=== PATIENT | male | born 1945 | race African-American/Black ===

== ENCOUNTER → 2017-10-24 | Outpatient (CLI) | payer OTHER ==
[~2017-10-24] VITALS: Ht 171.4 cm; Wt 80.7 kg
[~2017-10-24] MED LIST: AMLODIPINE BESY10 MG PO; ASPIR-LOW81 MG PO; ATARAX,VISTARIL25 MG PO; FLOMAX0.4 MG PO; HYDROCHLOROTH12.5 M3 PO; HYDROCHLOROTHIA25 MG PO; HYDROCODON-ACE1 EAC7 PO; INDOCIN25 MG PO; MOBIC15 MG PO; NEURONTIN100 MG PO; NORCO 7.5/321 TABLET PO; PRAVACHOL20 MG PO; PREDNISONE50 MG PO; PRILOSEC20 MG PO; PRINZIDE 10-121 EACH PO; TYLENOL EXTRA500 MG PO; ULTRAM50 MG PO; VALTREX1000 MG PO; ZANTAC300 MG PO
== END | disposition home or self-care (01) ==
LOC: AMB 10-14 08:00
DX: K62.7 Radiation proctitis (principal); D12.2 Benign neoplasm of ascending colon; D12.3 Benign neoplasm of transverse colon; K64.8 Other hemorrhoids; K62.89 Other specified diseases of anus and rectum; K59.09 Other constipation; K62.5 Hemorrhage of anus and rectum; Z85.46 Personal history of malignant neoplasm of prostate; Z92.3 Personal history of irradiation; Z87.891 Personal history of nicotine dependence
CPT/HCPCS: 88305